=== PATIENT | female | born 2000 | race Caucasian/White ===

== ENCOUNTER 2021-11-26 10:01 | Emergency (ER) | payer OTHER, BC, SELFPAY ==
--- NOTE | 2021-11-26 10:10 | ED.GENADULT ---
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 Patient reports that she thinks her tetanus shot is up to date with information noted in chart of last tetanus 06/26/2019. Patient very anxious and nervous MD complaint: laceration left index finger Treatments prior to arrival: other (pressure dressing) Related Data Home Medications Medication Instructions Recorded Confirmed norethindrone 1 mg-ethinyl 1 tablet PO DAILY 10/11/21 estradiol 20 mcg (21)-iron 75 mg (7) tablet Allergies Allergy/AdvReac Type Severity Reaction Status Date / Time No Known Allergies Allergy Verified 10/11/21 09:39 Review of Systems Review of Systems: CONSTITUTIONAL: Denies fever, chills, or sweats. EYES: Denies visual changes, redness, or discharge. ENT: Denies rhinorrhea, congestion, sore throat, or otalgia. CARDIOVASCULAR: Denies chest pain, palpitations, or edema. RESPIRATORY: Denies cough or dyspnea. GASTROINTESTINAL: Denies abdominal pain, nausea, vomiting, or diarrhea. GENITOURINARY: Denies dysuria or hematuria. SKIN: Denies rash or itching.laceration to left index finger flap type of laceration to the distal outer side of left index finger. MUSCULOSKELETAL: Denies back pain, joint pain, or myalgia. NEUROLOGIC: Denies headache, numbness, or weakness. PSYCHIATRIC: Positive for history of anxiety or depression. All systems reviewed & are unremarkable except as noted in HPI and below PMFSH Past Medical History Medical History Anxiety Depression Surgical History Surgical History [place] teeth extracted Family History Family History Grandparent Breast cancer Other Cancer Social History Social History Smoking status: Never smoker Alcohol intake: current Alcohol use details: socially Substance use: current Substance use type: does not use Comments At time of signature, agree with nursing past medical, surgical, social and family history. There is no relevant family history pertinent to the presenting complaint Exam Narrative: GENERAL: Well-appearing, well-nourished, and in no acute distress. HEAD: Normocephalic, atraumatic. EYES: PERRLA and EOMI. ENT: Nares clear, no rhinorrhea or epistaxis. Mucous membranes moist.TM's normal with good light reflex, throat pink with no lesions or exudates NECK: Supple. no lymphadenopathy CHEST: Clear to auscultation. No respiratory distress.SAO2 100% on room air HEART: Regular rate and rhythm. No murmur heard. Normal peripheral pulses. ABDOMEN: Soft, nontender, nondistended, normal active bowel sounds. EXTREMITIES: Normal range of motion. No edema. SKIN: Warm, dry, no rash.laceration to the outer distal dorsal area of left index finger with no injury to nail or any foreign body noted, has flap like laceration NEURO: No focal deficits. Alert and oriented x3. Course Course Level of Care: Express Care Visit Vital Signs Vital signs: Vital Signs Temperature 36.4 C L 11/26/21 10:20 Pulse Rate 75 11/26/21 10:20 Respiratory Rate 20 11/26/21 10:20 Blood Pressure 127/71 11/26/21 10:20 Pulse Oximetry 100 11/26/21 10:20 Temperature 36.4 C L 11/26/21 10:20 Pulse Rate 75 11/26/21 10:20 Respiratory Rate 20 11/26/21 10:20 Blood Pressure 127/71 11/26/21 10:20 Pulse Oximetry 100 11/26/21 10:20 Procedures
[2021-11-26 10:20] VITALS: BP 127/71; PULSE 75; RESP 20; TEMP 36.4; O2SAT 100
== END 2021-11-26 11:03 | disposition home or self-care (01) ==
PROVIDERS: Emergency Provider Registered Nurse
DX: S61.211A Laceration without foreign body of left index finger without damage to nail, initial encounter (principal); W26.0XXA Contact with knife, initial encounter; Y93.G1 Activity, food preparation and clean up; Y99.0 Civilian activity done for income or pay
CPT/HCPCS: 12001; 99213; G0463

== ENCOUNTER 2021-12-06 18:02 | Emergency (ER) | payer OTHER, BC, SELFPAY ==
--- NOTE | 2021-12-06 18:09 | ED.WOUNDLAC ---
HPI - Wound/Laceration General Chief Complaint: Wound/Laceration Stated Complaint: removal of stitches Time Seen by Provider: 12/06/21 18:09 Source: patient, RN notes reviewed and old records reviewed Mode of arrival: ambulatory Limitations: no limitations History of Present Illness HPI narrative: 21-year-old female presents to the [facility] requesting to have sutures removed that were placed on November 26, 2021. 6 sutures. Well approximated. No signs of infection Related Data Home Medications Medication Instructions Recorded Confirmed norethindrone ac-eth estradiol 1 tablet PO DAILY 12/06/21 12/06/21 [Microgestin 1.5/30 (21)] Allergies Allergy/AdvReac Type Severity Reaction Status Date / Time No Known Allergies Allergy Verified 12/06/21 18:14 Review of Systems Review of Systems: All systems reviewed & are unremarkable except as noted in HPI and below Constitutional: Constitutional: Reports no additional constitutional complaints, Denies chills and Denies fever(s) Eyes: Eyes: Reports no additional eye complaints ENT: Reports system reviewed and no additional complaints, except as documented Cardiovascular: Cardiovascular: Reports no additional cardiovascular complaints, Denies chest pain and Denies dyspnea Respiratory: Respiratory: Reports no additional respiratory complaints, Denies cough and Denies dyspnea Gastrointestinal: Gastrointestinal: Reports no additional gastrointestinal complaints, Denies abdominal pain, Denies nausea and Denies vomiting Musculoskeletal: Musculoskeletal: Reports no additional musculoskeletal complaints Integumentary/Breasts: Skin/Breast: Reports as per HPI Comments: Index finger laceration, suture removal Neurologic: Reports system reviewed and no additional complaints, except as documented Psychiatric: Psychiatric: Reports no additional psychiatric complaints Allergic/Immunologic: Allergic/Immunologic: Reports no additional allergic/immunologic complaints [facility] Past Medical History Medical History Anxiety Depression Surgical History Surgical History [place] teeth extracted Family History Family History Grandparent Breast cancer Other Cancer Social History Social History Smoking status: Never smoker Alcohol intake: current Alcohol use details: socially Substance use: current Substance use type: does not use Comments At the time of my signature, I reviewed and agree with the nursing past medical, surgical, social, and family history. There is no relevant family history pertinent to the patient complaint. Exam Const: General: cooperative, healthy appearing, no acute distress, well developed, alert and awake Nutritional Appearance: well nourished Orientation/consciousness: patient oriented x3 Limitations: no limitations HENMT: Head: normal to inspection and No palpable skull fracture present Ears: hearing grossly normal bilaterally, external ears normal, TM's normal bilaterally and EAC's normal Eyes: Pupils: Equal, round and reactive pupils present Neck: Neck: normal visual inspection, no lymphadenopathy and no meningeal signs Chest: Chest palpation & inspection: normal inspection of the chest Resp: Effort & Inspection: normal respiratory effort and no use of accessory muscles Auscultation: clear to auscultation bilaterally, no crackles, no rales, no rhonchi and no wheezes Cardio: Rate: regular rate Rhythm: regular rhythm Skin: Other: Well approximated, no signs of infection laceration left distal index finger. 6 sutures. Neuro: General: patient oriented x3, gait normal, moves all extremities, no meningeal signs and no focal motor deficits Cranial nerves: Yes Equal, round and reactive pupils present Speech: normal
[2021-12-06 18:11] VITALS: BP 127/75; PULSE 73; RESP 16; TEMP 36.6; O2SAT 99
== END 2021-12-06 18:32 | disposition home or self-care (01) ==
PROVIDERS: Emergency Provider Nurse Practitioner
DX: S61.211D Laceration without foreign body of left index finger without damage to nail, subsequent encounter (principal); X58.XXXD Exposure to other specified factors, subsequent encounter
CPT/HCPCS: 99211; G0463

== ENCOUNTER 2023-04-09 08:17 | Emergency (ER) | payer BC, SELFPAY ==
[2023-04-09 08:26] VITALS: BP 120/68; PULSE 69; RESP 16; TEMP 36.7; O2SAT 100
--- NOTE | 2023-04-09 08:28 | ED.SKABFB ---
HPI - Skin/Abscess/Foreign Bdy General Chief complaint: Skin/Abscess/Foreign Body Stated complaint: rash right foot Time Seen by Provider: 04/09/23 08:50 Source: patient and RN notes reviewed Mode of arrival: ambulatory Limitations: no limitations History of Present Illness HPI narrative: 23-year-old female presents with concern for rash on her right foot. Reports she had been camping and was wearing water shoes. She denies the rashes anywhere else. She reports the rash has not changed or spread. Reports small red bumps that are itchy. She reports she is putting hydrocortisone cream on without relief. Reports started 2 days ago MD complaint: insect bite/sting Related Data Home Medications Medication Instructions Recorded Confirmed norethindrone acetate 1.5 1 tablet PO DAILY 04/09/23 04/09/23 mg-ethinyl estradiol 30 mcg tablet (Microgestin) Allergies Allergy/AdvReac Type Severity Reaction Status Date / Time No Known Allergies Allergy Verified 04/09/23 08:35 Review of Systems Review of Systems: CONSTITUTIONAL: Denies malaise, chills, sweats, or fever. EYES: Denies redness, or discharge. ENT: Denies rhinorrhea, congestion, swollen lips, swollen tongue CARDIOVASCULAR: Denies chest pain, palpitations, or edema. RESPIRATORY: Denies cough or dyspnea. GASTROINTESTINAL: Denies abdominal pain, nausea, vomiting SKIN: Reports itchy rash on her right foot MUSCULOSKELETAL: Denies joint pain or myalgia. NEUROLOGIC: Denies headache. All systems reviewed & are unremarkable except as noted in HPI and below PMFSH Past Medical History Medical History Anxiety Depression Surgical History Surgical History [place] teeth extracted Family History Family History (Updated 01/24/23 @ 09:12 by Sita Breaux MA) Grandparent Breast cancer Other Cancer Father Biallelic mutation of ADSL gene Social History Social History (Updated 01/24/23 @ 09:13 by Sita Breaux MA) Smoking status: Never smoker Alcohol intake: current Alcohol use details: socially Substance use: never Substance use type: does not use Lack of Transportation: No Lack of Food: Never True Current Housing: I Have Housing Concerned About Future Housing: No Difficulty Paying Gas/Electric Bills: No Difficulty Paying for Meds: No Currently Unemployed: No Education: Associate Degree Difficulty w/ Childcare or Family Care: No Living arrangements: with family Additional living arrangements comments: boyfriend Occupation/Education: occupation Additional occupation/education comments: cook at [employer] Gender identity (if verbalized by the patient): Female Sexual Orientation (if Verbalized by the Patient): Straight or Heterosexual Comments At time of signature, agree with nursing past medical, surgical, social and family history. There is no relevant family history pertinent to the presenting complaint Exam Narrative: GENERAL: Well-appearing, well-nourished, and in no acute distress. HEAD: Normocephalic, atraumatic. EYES: PERRLA, conjunctivae clear, and EOMI. ENT: Mucous membranes moist. Oropharynx without edema, erythema or lesions. NECK: Supple. No lymphadenopathy CHEST: Clear to auscultation. No respiratory distress. HEART: Regular rate and rhythm. SKIN: Warm, dry. 6 cm x 3 cm patch of erythematous papules without surrounding erythema, edema, induration noted to the dorsal right foot, no vesicles or drainage noted NEURO: Alert and oriented x3. PSYCH: Normal mood and affect Course Course Emergency Course: Patient is aware of diagnosis, understands and agrees to treatment plan. Anticipatory guidance given. Patient agrees to follow-up as directed and is aware of reasons to seek care at the emergency department. Portions of this record may have been created with voice recognition software Lev
== END 2023-04-09 09:08 | disposition home or self-care (01) ==
PROVIDERS: Emergency Provider Nurse Practitioner
DX: S90.861A Insect bite (nonvenomous), right foot, initial encounter (principal); W57.XXXA Bitten or stung by nonvenomous insect and other nonvenomous arthropods, initial encounter
CPT/HCPCS: 99213; G0463

== ENCOUNTER 2024-01-24 13:51 | Outpatient (CLI) | payer BC, SELFPAY ==
--- NOTE | ~2024-01-24 | XR_ITS ---
Supine and upright views of the abdomen Clinical history: Abdominal pain Findings: Bowel gas pattern is nonspecific. No evidence for obstruction or free air. No abnormal mass lesion or calcification is seen. Probable pelvic phlebolith. Osseous structures are intact. Impression: No significant abnormality is seen. Reviewed, dictated and finalized at [facility]. Impression: No significant abnormality is seen.
== END 2024-01-24 13:52 | disposition home or self-care (01) ==
LOC: ANHIMG 13:52
PROVIDERS: PCP Family Medicine; Visit Provider Nurse Practitioner
DX: K92.89 Other specified diseases of the digestive system (principal)
CPT/HCPCS: 74018

== ENCOUNTER 2024-02-23 01:56 | Day surgery (SDC) | payer BC, SELFPAY ==
[2024-02-07 15:53] VITALS: BMI 22.3
[2024-02-23 12:14] VITALS: BP 100/68; PULSE 76; RESP 17; TEMP 36.4; O2SAT 100
--- NOTE | 2024-02-23 12:22 | WPDHPUPDATE1 ---
History and Physical Update Update Date/Time: 02/23/24 12:22 History and Physical has been reviewed, including an updated exam of the patient. There are NO changes in the patient's condition. Risks, benefits, and alternatives have been discussed and questions answered. Patient agrees to proceed with procedure.
[2024-02-23] MEDS: LACTATED RINGERS 1,000 ML 150 ML IV CONT (12:25)
--- NOTE | 2024-02-23 12:28 | WPDANESEPPF ---
Anes - Initial Pre Proc Eval Procedure: Operation Date: 02/23/24 13:30 Proposed Procedures p Colonoscopy - Leroy Brizuela MD Date/Time: 02/23/24 12:28 Surgeon: Leroy Brizuela MD Pre Op Diagnosis: RLQ &LLQ pain, Constipation Patient Data Age: 23 Gender: F Height: 1.63 m Weight: 57 kg Last Vital Signs Temp 97.6 F 02/23/24 12:14 Pulse 76 02/23/24 12:14 Resp 17 02/23/24 12:14 BP 100/68 02/23/24 12:14 Pulse Ox 100 02/23/24 12:14 O2 Del Method Room Air 02/23/24 12:14 Allergies Allergy/AdvReac Type Severity Reaction Status Date / Time No Known Allergies Allergy Verified 02/23/24 12:13 Home Medications Medication Instructions Recorded Confirmed Type norethindrone acetate 1.5 1 tablet PO DAILY #112 tabs 11/07/23 02/23/24 Rx mg-ethinyl estradiol 30 mcg tablet (Microgestin) Women's Probiotic 1 cap PO DAILY 02/07/24 02/23/24 History linaclotide 72 mcg capsule 72 mcg PO QAM #90 caps 02/07/24 02/23/24 Rx (Linzess) Patient hx anesthesia problems: none Family hx anesthesia problems: none Results Review: All pre-operative results and documents have been reviewed as part of the pre-operative evaluation. [facility] Past Medical History Medical History Anxiety Depression Surgical History Surgical History [place] teeth extracted [place] teeth removed Family History Family History Grandparent Breast cancer Other Cancer Father Biallelic mutation of ADSL gene Father Hypertension Cerebrovascular accident Mother Cancer Depression Anxiety Grandparent Breast cancer Cerebrovascular accident Hypogammaglobulinemia Diabetes mellitus Grandparent Malignant neoplasm of prostate Social History Social History Smoking status: Never smoker Second hand tobacco smoke exposure: No Alcohol intake: current Alcohol use details: socially Substance use: never Substance use type: does not use Do You Feel Safe in your Home?: Yes Lack of Transportation: No Lack of Food: Never True Current Housing: I Have Housing Concerned About Future Housing: No Difficulty Paying Gas/Electric Bills: No Difficulty Paying for Meds: No Currently Unemployed: No Education: High School Diploma/GED Difficulty w/ Childcare or Family Care: No Living arrangements: with family Additional living arrangements comments: boyfriend Occupation/Education: occupation Additional occupation/education comments: [employer] Gender identity (if verbalized by the patient): Female Sexual Orientation (if Verbalized by the Patient): Straight or Heterosexual Spiritual care concerns: No Anes - Eval Final PreProcedure Day of Procedure 02/23/24 12:28 Patient weight: normal Heart: regular rate and rhythm Lungs: clear to auscultation Airway: Mallampati scale class II Neurological: alert and oriented Last oral intake: >/= 8 hours ASA classification: I Emergent: no Anesthetic plan: proceed Anesthesia type and monitoring: general GIVS and standard monitoring Results Review: All pre-operative results and documents have been reviewed as part of the pre-operative evaluation. Abdominal pain, change in bowel habits, no cp or sob. Informed Consent: The patient's anesthetic plan and its attendant risks and benefits were discussed with the patient/family/POA. Questions were solicited and answers provided to the satisfaction of the patient/family/POA.
[2024-02-23 13:10] VITALS: BP 87/42; PULSE 73; RESP 20; O2SAT 97
[2024-02-23 13:20] VITALS: BP 98/51; PULSE 66; RESP 19; O2SAT 100
[2024-02-23 13:30] VITALS: BP 96/59; PULSE 57; RESP 19; O2SAT 99
== END 2024-02-23 13:43 | disposition home or self-care (01) ==
PROVIDERS: PCP Family Medicine; Referring Provider Nurse Practitioner; Visit Provider Internal Medicine Gastroenterology
PROC: 0DJD8ZZ Inspection of Lower Intestinal Tract, Via Natural or Artificial Opening Endoscopic (ICD-10-PCS; CPT 45378; principal; 2024-02-23 13:30)
DX: K64.8 Other hemorrhoids (principal); K92.89 Other specified diseases of the digestive system; R10.31 Right lower quadrant pain; R10.32 Left lower quadrant pain; K59.00 Constipation, unspecified; F41.8 Other specified anxiety disorders
CPT/HCPCS: 45378; J2704; J7120